=== PATIENT | male | born 1955 | race Caucasian/White ===

== ENCOUNTER 2025-01-23 09:06 | Day surgery (SDC) | payer MEDICARE, OTHER ==
--- NOTE | 2025-01-23 08:14 | HP ---
PREOPERATIVE HISTORY AND PHYSICAL HISTORY OF PRESENT ILLNESS: Last colonoscopy 10 years ago. No bloody stools. No change in bowel habits. No new pain. Family history negative for colon cancer. PAST MEDICAL HISTORY: Has had history of cataracts in the past. Hyperlipidemia in the past. Hypertension in the past. PAST SURGICAL HISTORY: She had a ring finger ganglion removed and liver transplant in the past. FAMILY HISTORY: Negative for colon cancer. SOCIAL HISTORY: Former smoker. Occasional alcohol use. MEDICATIONS: Sertraline, metoprolol, famotidine, vitamin D3, aspirin, and amlodipine. ALLERGIES: No known drug allergies. REVIEW OF SYSTEMS: Twelve systems reviewed. No chest pain or palpitations. Other systems negative or noncontributory as above and per preadmission assessment. PHYSICAL EXAMINATION: GENERAL: Height 6 foot. BMI 28.48. No acute distress. HEENT: Sclerae nonicteric. Extraocular movements are intact. NECK: No JVD. CHEST: Equal excursion, nonlabored breathing. CARDIOVASCULAR: Regular rate and rhythm. ABDOMEN: Soft. EXTREMITIES: No cyanosis or edema. NEUROLOGIC: Alert and oriented, moving all extremities symmetrically. PSYCHIATRIC: Appropriate mood and affect. SKIN: Dry. RECTAL: Deferred until time of endoscopy exam. IMPRESSION: Patient is in need of followup screening colonoscopy risks were explained procedure in detail including but not limited to bleeding and infection; risk of bowel injury or perforation; possible missed or non-diagnosis or incomplete exam possibly requiring barium enema; risk of anesthesia or sedation; risk of bowel prep, but not limited to. We will proceed with outpatient followup screening colonoscopy under MAC anesthesia. Otherwise, continue medications for hypertension, sertraline.
[2025-01-23] MEDS ORDERED: Lactated Ringers 1,000 ML IV ONE (09:37)
[2025-01-23] MEDS: Lactated Ringers 1,000 ML IV SCH (09:40)
[2025-01-23] MEDS ORDERED: propofoL IV ONE ×2 (11:39→11:54)
[2025-01-23] MEDS ORDERED: Versed 2 MG/2 ML Injection ONE (11:39)
[2025-01-23 12:39] VITALS: RESP 16; TEMP 96.7
[2025-01-23 12:45] VITALS: BP 127/74; PULSE 51; O2SAT 100
--- NOTE | 2025-01-25 08:55 | OP ---
SURGERY DATE/TIME: 01/23/2025 [id number] PREOPERATIVE DIAGNOSIS: Need for screening colonoscopy. POSTOPERATIVE DIAGNOSES: 1) ASA Class 2. 2) Withdrawal time approximately 11 minutes. 3) Poor bowel prep. 4) Pancolonic diverticulosis. 5) Transverse colon polyp. PROCEDURE: Colonoscopy to the cecum, hot snare polypectomy transverse colon polypectomy. SURGEON: David Ng MD [facility] COUNSELOR: Debo Fagan MS3 ANESTHESIA: MAC. ESTIMATED BLOOD LOSS: Minimal. INDICATIONS: Consent was obtained. DESCRIPTION OF PROCEDURE AND FINDINGS: Patient was taken to the endoscopy room. MAC anesthesia induced. After official time-out, no disagreement with planned procedure. Digital rectal exam did not reveal any rectal masses. Videocolonoscope inserted, passed up through tortuous sigmoid, descending, transverse, ascending colon, around to the cecum. Appendiceal orifice was visualized. There was also multiple large diverticula throughout the entire colon including the cecum. Prep overall was poor. There were some solid stool chunks in the mid part of the colon limiting exam for small lesions. There was, however, no evidence of any large mass or obstructing lesion. The scope was carefully withdrawn over the next 11 minutes, suctioning and irrigating as clear as possible. Again, he did have pancolonic diverticulosis. In the transverse colon, there was a pedunculated polyp that was about 3.5 to 4 mm, removed with hot snare polypectomy and vigorous cautery. Scope was continued to pull back through the left colon and into the rectum. Again, prep-limited exam. There was no sign of any large masses or obstructing lesions. Findings discussed with family out in the waiting area. Likely, the patient will need a 3-day prep or a different type of prep next time in the future.
== END 2025-01-23 12:51 | disposition home or self-care (01) ==
LOC: SDC 09:06
PROVIDERS: ATTEND Surgery
DX: Z12.11 Encounter for screening for malignant neoplasm of colon (principal); K57.30 Diverticulosis of large intestine without perforation or abscess without bleeding; K63.5 Polyp of colon
CPT/HCPCS: J2250; J2704